=== PATIENT | female | born 1945 | race Caucasian/White ===

== ENCOUNTER 2016-09-05 17:51 | Inpatient (IN) | payer OTHER, MEDICARE ==
[~2016-09-05] VITALS: Ht 165.1 cm; Wt 74.8 kg
[~2016-09-05 17:51] MED LIST: CIPRO 500MG (E500 MG PO; IBU-6600 MG PO; LEVOTHROID0.125 MG PO; MOTRIN 400MG (400 MG PO
[2016-09-05 20:38] LABS: ABSOLUTE BASOPHIL COUNT 0 /CUMM (0.0-0.2); ABSOLUTE EOSINOPHIL COUNT 0.3 /CUMM (0.0-0.7); ABSOLUTE GRANULOCYTE CT 6.3 /CUMM (1.4-6.5); ABSOLUTE LYMPH COUNT 0.4 /CUMM (1.2-3.4); ABSOLUTE MONOCYTE COUNT 0.5 /CUMM (0.10-0.60); BASOPHIL % 0.2 % (0.0-2.0); EOSINOPHIL % 3.7 % (0-5); GRANULOCYTE % 84.7 % (42.2-75.2); HEMATOCRIT 45.3 % (37-47); MEAN CORPUSCULAR HGB 27.4 PG (27.0-31.0); MEAN CORPUSCULAR HGB CONC 32.8 G/DL (33.0-37.0); MEAN CORPUSCULAR VOLUME 83.3 FL (81.0-99.0); MEAN PLATELET VOLUME 9.2 FL (7.4-10.4); PLATELET COUNT 337 /CUMM (130-400); RBC DISTRIBUTION WIDTH 13.6 % (11.5-14.5); RED BLOOD CELL CT 5.44 /CUMM (4.20-5.40); WHITE BLOOD CELL COUNT 7.4 /CUMM (4.8-10.8)
--- NOTE | 2016-09-05 20:47 | ED INFLUENZA/URI COMPLAINT ---
History of Present Illness General Chief Complaint: General Adult Stated Complaint: MY LUNGS HAVE FLUID Source: patient, family, old records Exam Limitations: no limitations Vital Signs & Intake/Output Vital Signs & Intake/Output Vital Signs Date Time Temp Pulse Resp B/P Pulse O2 O2 Flow FiO2 Ox Delivery Rate 09/05 2122 95 09/05 1828 98.3 81 20 134/84 98 Room Air Allergies Coded Allergies: codeine (Intermediate, NAUSEA 07/13/16) meperidine (From DEMEROL) (Intermediate, NAUSEA 07/13/16) Reconcile Medications Levothyroxine Sodium (Synthroid) 125 MCG TABLET 1 TAB PO DAILY THYROID ( Reported) Triage Note: PT TO TRIAGE WITH C/O SOB, DRY COUGH, AND FEELING LIKE HER AIRWAYS IRRITATED. PT HAD A COLONOSCOPY DONE 2 WEEKS AGO AND WAS INTUBATED FOR PROCEDURE. PT HAS SYMPTOMS SINCE. PT DENIES ANY PAIN. VSS. Triage Nurses Notes Reviewed? yes Onset: Gradual Duration: week(s): (2), constant, getting worse Timing: recent history Severity: moderate Severity Numbers: 7 Prior Episodes/Possible Cause: no prior episodes No Modifying Factors: none Associated Symptoms: cough, fever/chills, muscle aches, wheezing HPI: This is a 71-year-old female with history of exercise-induced asthma hypothyroid diverticulitis presents emergency room for evaluation complaining of progressively worsening nonoperative cough shortness of breath for the past 2 weeks getting worse. Patient states that she had a colonoscopy performed on August 19 and when she was coming out of the anesthesia the patient states that she vomited multiple times. She states she had a CAT scan performed 1 week ago that showed findings suggestive of multifocal pneumonia and was started on Augmentin. She states she just finished the prescription however states her symptoms have been getting worse. She reports a positive chills today no fever no nausea no vomiting since no chest pain. It swelling chest pain dizziness lightheadedness. No diarrhea. No recent sick contacts she does not smoke (LIZETTE PALACIOS,ANTONIO) Past History Travel History Traveled to [place] past 21 day No Medical History Any Pertinent Medical History? 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 No (ANTONIO [employer]) Review of Systems Review of Systems Constitutional: Reports: see HPI. All Other Systems: Reviewed and Negative Comments Review of systems: See HPI, All other systems negative. Constitutional, chills no fever, no malaise HEENT: no sore throat no congestion, Cardiovascular: No chest pain , no palpitation , no orthopnea no ankle swelling Skin,no rashes, no change in skin Respiratory: dyspnea cough no sputum no hemoptysis GI: No nausea no vomiting, no diarrhea, : No dysuria Muscle skeletal: No joint pain,, no back pain, no neck pain, Neurologic: No numbness no headache Psych: No stress Heme/endocrine: No bruising no bleeding Immunology: No lymphadenopathy (ANTONIO [employer]) Physical Exam Physical Exam General Appearance: well developed/nourished, alert, awake Ears, Nose, Throat: normal ENT inspection Comments: Well-developed well-nourished person in no acute distress HEENT: Normal EENT exam; PERRL, EOMI, HEAD is atraumatic. moist mucous membranes. Neck: Supple, no lymphadenopathy, normal range of motion Back: Nontender, no CVA tenderness. Full range of motion Cardiovascular: Regular rate and rhythms no murmurs rubs Respiratory: Chest nontender.There were no bony deformities, no asymmetry. No respiratory distress. Patient speaking in full complete sentences. Breath sounds clear to auscultation bilaterally: NO W/R/R Abdomen: Soft, nontender nondistended, no appreciable organomegaly. Normal bowel sounds. No rebound/guarding, Extremity: No edema, full range of motion of extremities, Neuro: Alert oriented x3, motor sensory normal, There were no obvious focal neurologic abnormalities. Skin: No appreciable rash on exposed skin, skin is warm and dry. Psych: Mood and affect is normal, memory and judgment is normal. Core Measures Severe Sepsis Present: No Septic Shock Present: No (ANTONIO [employer]EL) Progress Differential Diagnosis: influenza, otitis, pneumonia, pharyngitis, sinusitis, bronchitis, chf Plan of Care: Orders Procedure Date/time Status Regular Diet 09/06 B Active LACTIC ACID 09/053 Active EKG 09/05 2155 Active Patient Data 09/05 2144 Active OXYGEN SETUP (GEN) 09/05 2106 Active Saline Lock 09/05 2106 Active Admit to inpatient 09/05 2106 Active Vital Signs 09/05 2106 Active Activity/Ambulation 09/05 2106 Active Code Status 09/05 2106 Active BLOOD CULTURE 09/05 2052 Active LACTIC ACID 09/05 2052 Active TROPONIN LEVEL 09/05 1934 Complete COMPREHENSIVE METABOLIC PANEL 09/05 1934 Complete CBC WITHOUT DIFFERENTIAL 09/05 1934 Complete B-TYPE NATRIURETIC PEP (BNP) 09/05 1934 Complete Laboratory Tests 09/05/162154: Lactic Acid Pending 09/05/162028: Anion Gap 12, Estimated GFR > 60, BUN/Creatinine Ratio 11.4, Glucose 98, Calcium 9.7, Total Bilirubin 0.9, AST 20, ALT 32, Alkaline Phosphatase 78, Troponin I < 0.01, Jpi-O-Xjklynqttyl Pept 107, Total Protein 7.4, Albumin 4.5, Globulin 2.9, Albumin/Globulin Ratio 1.6, CBC w Diff NO MAN DIFF REQ, RBC 5.44 H, MCV 83.3, MCH 27.4, RDW 13.6, MPV 9.2, Gran % 84.7 H, Lymphocytes % 4.9 L, Monocytes % 6.5, Eosinophils % 3.7, Basophils % 0.2, Absolute Granulocytes 6.3, Absolute Lymphocytes 0.4 L, Absolute Monocytes 0.5, Absolute Eosinophils 0.3, Absolute Basophils 0, PUBS MCHC 32.8 L Microbiology 09/05 2154 BLOOD: Blood Culture - RECD 09/05 2129 BLOOD: Blood Culture - RECD Labs ordered chest x-ray ordered, old records incluing pts previous ct reviewed IMPRESSION: 1. Multifocal patchy parenchymal opacities are seen throughout the left lung as described above. Findings are suspicious for a diffuse pneumonia, perhaps related to an atypical organism. Close clinical correlation is requested. Other differential possibilities could include diffuse pneumonitis related to aspiration, given the patient's hiatal hernia. Follow-up CT scan in 3 months post treatment is recommended to document complete resolution of findings. 2. 0.6 cm nonspecific solid noncalcified nodule in the right middle lobe. This can be reassessed at the time of the above suggested follow-up CT scan. 3. Moderate-sized hiatal hernia. 09/05/2016 9:17:21 PM patient was seen by me immediately being brought back to the room, I discussed with her at length all of her lab results and x-ray findings given she has failed outpatient therapy I believe premature discharge would BE medically harmful case was discussed with Dr. osman who agrees with plan unasyn 1.[address] nava , will admit, duoneb ordered, solumedrol 125mg iv ordered (ANTONIO [employer]) Diagnostic Imaging: Viewed by Me: Radiology Read. Discussed w/RAD: Radiology Read. Radiology Impression: PATIENT: WILDER OTT PRESENT AGE: 71 PATIENT ACCOUNT NO: [id number] : 47 LOCATION: [facility] ORDERING PHYSICIAN: LENKA OSMAN MD SERVICE DATE: 09/05/16 EXAM TYPE: RAD - XRY-CHEST XRAY, PA AND LATERAL EXAMINATION: XR CHEST CLINICAL INFORMATION: Shortness of breath, cough. COMPARISON: CT from 08/27/2016. Radiograph 2016. TECHNIQUE: 2 views of the chest were obtained. FINDINGS: The lungs are well expanded. There is patchy airspace opacity throughout the left lung. This is similar to the prior CT and increased from the prior radiograph. No pleural effusion or pneumothorax. The cardiomediastinal silhouette is within normal limits. Mild degenerative changes of the spine. IMPRESSION: Patchy airspace opacity throughout the left lung, similar to the prior CT most suspicious for multifocal pneumonia. DICTATED BY: BEV DEWEY MD DATE/TIME DICTATED:2047 PLASTIC TILE SETTER:SUZIE DATE/TIME TRANSCRIBED:09/05/162047 CONFIDENTIAL, DO NOT COPY WITHOUT APPROPRIATE AUTHORIZATION. <Electronically signed in Other Vendor System> SIGNED BY: BEV DEWEY MD 09/05/162051 Initial ED EKG: normal intervals, normal p-waves, normal QRS complex, normal sinus rhythm (80) Prior EKG: unchanged (06/2016) (ANTONIO [employer]EL) Departure Departure Time of Disposition: 2111 Disposition: STILL A PATIENT Condition: Stable Clinical Impression Primary Impression: Aspiration pneumonia Secondary Impressions: Lung nodule Referrals: OPAL CROWELL DO (PCP/Family) Departure Forms: Customer Survey General Discharge Information Admission Note Spoke With: GLENDA NAVA MD Documentation of Exam: Documentation of any treatments & extenuating circumstances including Concerns Regarding Discharge (functional status, medication knowledge or non-compliance, living conditions, etc.) that warrant an admission rather than observation: [ Trend labs and cultures IV antibiotics patient has failed outpatient by mouth antibiotics, respiratory treatments as needed premature discharge would BE medically harmful (LIZETTE PALACIOS,ANTONIO) PA/ASSISTANT NURSE MANAGER Co-Sign Statement Statement: ED Attending supervision documentation- x I saw and evaluated the patient. I have also reviewed all the pertinent lab results and diagnostic results. I agree with the findings and the plan of care as documented in the PA's/ASSISTANT NURSE MANAGER's documentation. [] I have reviewed the ED Record and agree with the PA's/ASSISTANT NURSE MANAGER's documentation. [] Additions or exceptions (if any) to the PAs/ASSISTANT NURSE MANAGER's note and plan are summarized below: [] (JACQUI PICKARD,LENKA)
--- NOTE | 2016-09-05 20:52 | RADIOLOGY REPORT ---
EXAMINATION: XR CHEST CLINICAL INFORMATION: Shortness of breath, cough. COMPARISON: CT from 08/27/2016. Radiograph 08/21/2016. TECHNIQUE: 2 views of the chest were obtained. FINDINGS: The lungs are well expanded. There is patchy airspace opacity throughout the left lung. This is similar to the prior CT and increased from the prior radiograph. No pleural effusion or pneumothorax. The cardiomediastinal silhouette is within normal limits. Mild degenerative changes of the spine. IMPRESSION: Patchy airspace opacity throughout the left lung, similar to the prior CT most suspicious for multifocal pneumonia.
[2016-09-05] MEDS ORDERED: SYNTHROID125 MCG PO (21:24)
--- NOTE | 2016-09-05 22:20 | History & Physical ---
CY PICKARD,[facility] 09/05/16 2219: General Information and HPI MD Statement: I have seen and personally examined WILDER OTT and documented this H&P. The patient is a 71 year old F who presented with a patient stated chief complaint of [sob and cough]. Source of Information: patient Exam Limitations: no limitations History of Present Illness: This is a 71-year-old lady with a medical history only significant for hypothyroidism that presents to the emergency room this evening with a chief complaint of dyspnea. She states that 2 weeks ago she had a colonoscopy and during the procedure started to vomit and had to be intubated. She went home the same day and subsequently developed fevers and dry cough, her PCP sent her for chest x-ray which was negative but her symptoms persisted and she eventually got a CAT scan which showed multifocal opacities throughout the left lung and there is a high suspicion aspiration pneumonia. Her PCP placed on a seven-day course of Augmentin which she just finished yesterday evening. Patient states that when she started taking the antibiotic she felt good for a couple of days but over the course of last 2-3 days she has been having dry cough, tactile fevers, chills and orthopnea. Her recommended that she come to the ER and get evaluated. At present she denies any chest pain, nausea, vomiting, diarrhea, fevers or chills, states that her shortness of breath has gotten better since she received nebulizer treatment in the emergency room. Her chest x-ray today that show patchy airspace opacity throughout the left lung likely 2/ 2 multifocal pneumonia. 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 Home Who Do You Live With? spouse Primary Language: Zimbabwean Smoking Status: Never Smoked ETOH Use: denies use Illicit Drug Use: denies illicit drug use Functional Ability ADLs Independent: dressing, eating, toileting, bathing. IADLs Independent: shopping, housework, finances, food prep, telephone, transportation , medication admin. Review of Systems Review of Systems Constitutional: Reports: see HPI. Exam & Diagnostic Data Last 24 Hrs of Vital Signs/I&O Vital Signs Date Time Temp Pulse Resp B/P Pulse O2 O2 Flow FiO2 Ox Delivery Rate 09/05 2212 99.3 78 24 151/74 96 Room Air 09/05 212 95 09/05 1828 98.3 81 20 134/84 98 Room Air Physical Exam General Appearance Alert, Oriented X3, Cooperative, No Acute Distress Skin No Rashes, No Breakdown HEENT Atraumatic, PERRLA, EOMI Cardiovascular Regular Rate, Normal S1, Normal S2, 1/6 ENID RUSB Lungs NORMAL AIR ENTRY BILATERALLY, RONCHII AND WHEEZING OVER MID AND LOWER LUNGS B/L Abdomen Normal Bowel Sounds, Soft, No Tenderness Neurological Normal Speech, Strength at 5/5 X4 Ext, Normal Tone, Sensation Intact, Cranial Nerves 3-12 NL Diagnostic Data EKG Results Rate 78, CA 158, QRS 104, QTc 388 Sinus rhythm, LVH CXR Results IMPRESSION: Patchy airspace opacity throughout the left lung, similar to the prior CT most suspicious for multifocal pneumonia. Assessment/Plan Assessment: Assessment- 1. Aspiration PNA 2. Reactive airways 2/2 aspiration PNA 3. Hypothyroidism 4. Pulmonary nodules as evidenced by CAT scan Plan- GEN med admit Blood culture and sputum culture Started on Unasyn 3 g every 6 TRC evaluation, pulmonary toilet, maintain oxygen saturation greater than 95%, supplement as needed Continue home dose of Synthroid IN Solumedrol 40 q12 Consider Pulmonary consult in the morning Regular diet Pain pathway DVT prophylaxis with subcutaneous heparin Full code As Ranked By This Provider Problem List: 1. Aspiration pneumonia 2. Hypothyroid Core Measures/Miscellaneous Acute Coronary Syndrome ACS Diagnosis: No Cerebrovascular Accident CVA/TIA Diagnosis: No Congestive Heart Failure CHF Diagnosis: No Venous Thromboembolism VTE Risk Factors: Age > 40 VTE Prophylaxis Ordered Inpt: Mechanical (ALPS/TEDS) No Mech VTE prophylaxis d/t: No contraindications No VTE Pharm Prophylaxis d/t: No contraindications VTE Diagnosis: No VTE Type: NONE VTE Confirmed by (Test): NONE Severe Sepsis Severe Sepsis Present: No Septic Shock Septic Shock Present: No Miscellaneous Documentation Attending Case Discussed With: GLENDA NAVA MD Primary Care Physician: OPAL CROWELL DO Patient sees these Specialists NONE Level of Patient Care: General Medicine Resident Review Statement Resident Statement: examined this patient, discussed with fashion styling intern KRISTIN NAVA MD 09/06/16 0018: Attending MD Review Statement Attending Statement Attending MD Statement: examined this patient, discuss w/resident/PA/CARPENTER HELPER [employer], agreed w/resident/PA/CARPENTER HELPER [employer] Attending Assessment/Plan: 71 yo F with h/o hypothyroidism, exercise-induced asthma, recurrent episodes of diverticulitis (Jul and Jun 2016) that was treated conservatively after which she recently underwent colonoscopy by Dr. Buckner on 08/19/2016. This revealed sigmoid diverticulosis with fixed angulation likely related to recurrent diverticulitis. During the procedure, she vomited and had to be intubated. Post discharge, she experienced sore throat, fever and cough. CT chest (08/27/16) showed diffuse pneumonia, lung nodule and moderate sized hiatal hernia, so she was treated with Augmentin for aspiration pneumonia by her PCP for 7 days. She felt better for 3-4 days, but her symptoms returned with cough, chills and exertional dyspnea. Vitals stable except sats are in low 90's on RA. Chest b/l scattered rhonchi and wheezing. Labs unremarkable. CXR: patchy airspace opacity left lung, multifocal pneumonia. EKG: SR, nonspecific T wave changes. 1. Multifocal aspiration vs. Atypical pneumonia, in the setting of recent aspiration and moderate sized hiatal hernia, failed outpatient therapy. This has likely precipitated her asthma exacerbation. GM admit, TRC nebs, aspiration precautions, sputum culture, IV Unasyn and IV steroids. Pulm consult in AM. Consider repeat CT chest if symptoms do not get better. DVT ppx Lovenox. Full code.
[2016-09-06 01:43] VITALS: BP 140/70
--- NOTE | 2016-09-06 05:26 | Admission Certification ---
Admission Certification Certification Statement - As attending physician, I certify that at the time of - admission, based on clinical presentation, severity of - symptoms, need for further diagnostic testing and - therapeutic interventions, and risk of adverse outcomes - without in-hospital treatment, in my clinical assessment, - this patient requires an acute hospital stay for a minimum - of two nights or longer. I have also considered psychsocial - factors such as support system, advanced age, financial - issues, cognitive issues, and failed out-patient treatments, - past re-admission history, safety of patient, and lack of - compliance as applicable. Specific rationale supporting this admission is: Aspiration vs. atypical pneumonia, failed outpatient therapy, associated with asthma exacerbation.
[2016-09-06 06:49] VITALS: BP 134/74
--- NOTE | 2016-09-06 07:46 | PN- Housestaff ---
ALETHA PICKARD,ANTHONY 09/06/16 0738: Subjective Follow-up For: Aspiration pneumonia Subjective: She c/o cough but denies any sputum production, fever/chills, n/v/abdominal pain. She has chest tightness. Review of Systems Constitutional: Denies: chills, fever, weakness. EENTM: Reports: no symptoms. Cardiovascular: Denies: chest pain, orthopena, palpitations, peripheral edema. Respiratory: Reports: cough, short of breath. Denies: hemoptysis, orthopnea, sputum production, wheezing. Gastrointestinal: Denies: abdominal pain, constipation, diarrhea, nausea, vomiting. Genitourinary: Reports: no symptoms. Musculoskeletal: Reports: no symptoms. Skin: Reports: no symptoms. Neurological/Psychological: Reports: no symptoms. Hematologic/Endocrine: Reports: no symptoms. Immunologic/Allergic: Reports: no symptoms. Objective Last 24 Hrs of Vital Signs/I&O Vital Signs Date Time Temp Pulse Resp B/P Pulse O2 O2 Flow FiO2 Ox Delivery Rate 09/06 0649 98.8 86 20 134/74 93 Room Air 09/06 0400 91 Room Air 09/06 0143 99.0 84 20 140/70 91 Room Air 09/05 2347 98.9 75 18 148/69 96 09/05 2213 99.3 78 24 151/74 96 Room Air 09/05 2122 95 09/05 1828 98.3 81 20 134/84 98 Room Air Intake & Output 09/06 0800 09/06 0000 09/05 1600 Intake Total 230 100 Output Total Balance 230 100 Intake, IV 130 100 Intake, Oral 100 Number 0 Bowel Movements Patient 165 lb 165 lb Weight Physical Exam General Appearance: Alert, Oriented X3, Cooperative, No Acute Distress Skin: No Rashes, No Breakdown, No Significant Lesion HEENT: Atraumatic, PERRLA, EOMI, Mucous Membr. moist/pink Neck: Supple, No JVD, No LAD Lymphatic: Cervical nl Cardiovascular: Regular Rate, Normal S1, Normal S2 Lungs: Normal Air Movement, decreased breathing sound Abdomen: Normal Bowel Sounds, Soft, No Tenderness Neurological: Normal Speech, Strength at 5/5 X4 Ext, Normal Tone, Sensation Intact, Cranial Nerves 3-12 NL Extremities: No Edema, Normal Pulses, No Tenderness/Swelling Vascular: Normal Pulses, Pulses Symmetrical Current Medications: Current Medications Sig/Anushka Start time Last Medication Dose Route Stop Time Status Admin Acetaminophen 650 MG Q6 09/05 2359 AC PO Albuterol Sulfate 3 ML ONCE ONE 09/05 2114 DC 09/05 INH 09/05 Ampicillin Sodium/ 3,000 MG Q6H 09/06 0400 AC 09/06 Sulbactam Sodium IV 0349 Sodium Chloride 100 ML Ampicillin Sodium/ 0 .STK-MED ONE 09/05 2158 DC Sulbactam Sodium .ROUTE Ampicillin Sodium/ 1,500 MG ONCE ONE 09/05 2114 DC 09/05 Sulbactam Sodium IV 09/05 Sodium Chloride 100 ML Ibuprofen 600 MG Q6P PRN 09/05 2300 AC PO Ipratropium Lasara 2.5 ML ONCE ONE 09/05 2114 DC 09/05 INH 09/05 Levothyroxine Sodium 0.125 MG DAILY AC 09/06 0700 AC 09/06 PO 0623 Methylprednisolone 40 MG Q12 09/06 1000 AC IV Methylprednisolone 0 .STK-MED ONE 09/05 2157 DC .ROUTE Methylprednisolone 125 MG ONCE ONE 09/05 2114 DC 09/05 IV 09/05 Last 24 Hrs of Lab/Mian Results Last 24 Hrs of Labs/Mics: Laboratory Tests 09/05/162154: Lactic Acid 1.4 09/05/162028: Anion Gap 12, Estimated GFR > 60, BUN/Creatinine Ratio 11.4, Glucose 98, Calcium 9.7, Total Bilirubin 0.9, AST 20, ALT 32, Alkaline Phosphatase 78, Troponin I < 0.01, Nmi-R-Wypwqytfywv Pept 107, Total Protein 7.4, Albumin 4.5, Globulin 2.9, Albumin/Globulin Ratio 1.6, CBC w Diff NO MAN DIFF REQ, RBC 5.44 H, MCV 83.3, MCH 27.4, RDW 13.6, MPV 9.2, Gran % 84.7 H, Lymphocytes % 4.9 L, Monocytes % 6.5, Eosinophils % 3.7, Basophils % 0.2, Absolute Granulocytes 6.3, Absolute Lymphocytes 0.4 L, Absolute Monocytes 0.5, Absolute Eosinophils 0.3, Absolute Basophils 0, PUBS MCHC 32.8 L Microbiology 09/05 2252 LOWER RESP: Respiratory Culture - COLB 09/05 2252 LOWER RESP: Gram Stain - COLB 09/05 2154 BLOOD: Blood Culture - RECD 09/05 2129 BLOOD: Blood Culture - RECD Lines/Diet/Fluids Lines: peripheral lines Assessment/Plan Assessment: 71 yo female with pmh of hypothyroidism, exercise-induced asthma, recurrent episodes of diverticulitis (Jul and Jun 2016) that was treated conservatively after which she recently underwent colonoscopy by Dr. Buckner on 08/19/2016. This revealed sigmoid diverticulosis with fixed angulation likely related to recurrent diverticulitis. During the procedure, she vomited and had to be intubated. Post discharge, she experienced sore throat, fever and cough. CT chest (08/27/16) showed diffuse pneumonia, lung nodule and moderate sized hiatal hernia, so she was treated with Augmentin for aspiration pneumonia by her PCP ( Dr. Vega) for 7 days. She felt better for 3-4 days, but her symptoms returned with cough, chills and exertional dyspnea. CXR: patchy airspace opacity left lung, multifocal pneumonia. EKG: SR, nonspecific T wave changes. 1. Multifocal aspiration pneumonia: recent aspiration with moderate sized hiatal hernia, failed outpatient augmentin therapy. continue TRC nebs, aspiration precautions, sputum culture, IV Unasyn and IV steroids. Will get Pulm consult. 2. Rt. middle low 0.6cm solid noduel: follow up Pulmonary as outpatient. 3. Hypothyrodism: c/w home 0.125 mg daily. DVT ppx Lovenox. Full code. Problem List: 1. Aspiration pneumonia 2. Lung nodule Pain Ratin Pain Location: NA Pain Goal: Pain 4 or less Pain Plan: tyrenol Tomorrow's Labs & Rationales: CBC - acute infection DVT/Prophylaxis: pharmacological Consulting Request: Consulting Specialty: Pulmonary Disease Consulting Physician: Dr. Terry Reason for Consult: Aspiration pneumonia, lung nodule Discharge Plan Stable for Discharge? No JALEESA ALMARAZ MD 09/06/16 1439: Attending MD Review Statement Attending Statement Attending MD Statement: examined this patient, discuss w/resident/PA/RN PERINATAL, agreed w/resident/PA/RN PERINATAL, reviewed EMR data (avail), discussed with nursing, amended to note Attending Assessment/Plan: The patient was seen and discussed with house staff. Agree with plan of care as outlined.
--- NOTE | 2016-09-06 12:54 | Cons- Pulmonary ---
General Information and HPI Consulting Request Date of Consult: 09/06/16 Requested By: sarwat Reason for Consult: Abnormal chest x-ray History of Present Illness: 71-year-old with mild exercise-induced asthma on active underwent colonoscopy approximately 2 weeks ago. He was in the left lateral decubitus position. Her procedure was complicated by emesis during the procedure and subsequently in the recovery room. Chest x-ray showed left-sided infiltrate for which she was started on antibiotics. He transiently improved but had recurrence of dry cough and shortness of breath and was seen in the emergency room yesterday. CT scan was done which showed patchy left lung infiltrates. She's been started on steroids and Unasyn. She reports feeling better but continues to have a dry cough without sputum she's had no hemoptysis she remains on room air. Allergies/Medications Allergies: Coded Allergies: codeine (Intermediate, NAUSEA 07/13/16) meperidine (From DEMEROL) (Intermediate, NAUSEA 07/13/16) Home Med List: Levothyroxine Sodium (Synthroid) 125 MCG TABLET 1 TAB PO DAILY THYROID ( Reported) Review of Systems Review of Systems Constitutional: Denies: chills, fever. Cardiovascular: Denies: chest pain, peripheral edema. Respiratory: Reports: cough, short of breath. Denies: hemoptysis, sputum production, wheezing. GI: Denies: abdominal pain, bloating, diarrhea, vomiting. 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 Home Who Do You Live With? spouse Services at Home: None Primary Language: Czech Smoking Status: Never Smoked ETOH Use: denies use Illicit Drug Use: denies illicit drug use Functional Ability ADLs Independent: dressing, eating, toileting, bathing. IADLs Independent: shopping, housework, finances, food prep, telephone, transportation , medication admin. ECHO Results (as available) Date of last Echo 05/25/13 EF% 65 Exam & Diagnostic Data Last 24 Hrs of Vital Signs/I&O Vital Signs Date Time Temp Pulse Resp B/P Pulse O2 O2 Flow FiO2 Ox Delivery Rate 09/06 0841 Room Air Room Air 09/06 0800 Room Air 09/06 0649 98.8 86 20 134/74 93 Room Air 09/06 0400 91 Room Air 09/06 0143 99.0 84 20 140/70 91 Room Air 09/05 2347 98.9 75 18 148/69 96 09/05 2213 99.3 78 24 151/74 96 Room Air 09/05 2122 95 09/05 1828 98.3 81 20 134/84 98 Room Air Intake & Output 09/06 1600 09/06 0800 09/06 0000 Intake Total 230 100 Output Total Balance 230 100 Intake, IV 130 100 Intake, Oral 100 Number 0 Bowel Movements Patient 165 lb 165 lb Weight Patient is afebrile room oximetry is 93% HNT exam shows no adenopathy or stridor exam for chest shows left crackles there are no wheezes cardiac exam shows regular S1 and S2 without murmurs abdominal exam is soft nontender extremities without edema Last 48 Hrs of Labs/Mian: Laboratory Tests 09/05/162154: Lactic Acid 1.4 09/05/162028: Anion Gap 12, Estimated GFR > 60, BUN/Creatinine Ratio 11.4, Glucose 98, Calcium 9.7, Total Bilirubin 0.9, AST 20, ALT 32, Alkaline Phosphatase 78, Troponin I < 0.01, Azj-[id number]-[id number] Pept 107, Total Protein 7.4, Albumin 4.5, Globulin 2.9, Albumin/Globulin Ratio 1.6, CBC w Diff NO MAN DIFF REQ, RBC 5.44 H, MCV 83.3, MCH 27.4, RDW 13.6, MPV 9.2, Gran % 84.7 H, Lymphocytes % 4.9 L, Monocytes % 6.5, Eosinophils % 3.7, Basophils % 0.2, Absolute Granulocytes 6.3, Absolute Lymphocytes 0.4 L, Absolute Monocytes 0.5, Absolute Eosinophils 0.3, Absolute Basophils 0, PUBS MCHC 32.8 L Assessment/Plan Impression/Plan: 71-year-old previously healthy had emesis while undergoing colonoscopy with moderate sedation in the left lateral decubitus position. She has evidence of changes secondary to aspiration. Whether these are due to partially treated infection or inflammatory changes such as organizing pneumonia are unclear. Recommendations: With no evidence of bronchospasm would rapidly taper steroids. Attempt to induce sputum. Continue antibiotics. Obtain sedimentation rate. Dr. Andrews will be covering for the weekend. She will need outpatient CT follow-up for infiltrates and nodules Consult Acknowledgment - Thank you for your consult request.
[2016-09-06 14:18] VITALS: BP 150/80
[2016-09-06 22:38] VITALS: BP 132/70
[2016-09-07 06:30] VITALS: BP 126/70
[2016-09-07 08:43] LABS: ABSOLUTE BASOPHIL COUNT 0 /CUMM (0.0-0.2); ABSOLUTE EOSINOPHIL COUNT 0 /CUMM (0.0-0.7); ABSOLUTE LYMPH COUNT 0.5 /CUMM (1.2-3.4); ABSOLUTE MONOCYTE COUNT 0.7 /CUMM (0.10-0.60); BASOPHIL % 0 % (0.0-2.0); EOSINOPHIL % 0 % (0-5); GRANULOCYTE % 87.1 % (42.2-75.2); MEAN CORPUSCULAR HGB CONC 33.5 G/DL (33.0-37.0); MEAN CORPUSCULAR VOLUME 83.5 FL (81.0-99.0); PLATELET COUNT 330 /CUMM (130-400); RED BLOOD CELL CT 4.64 /CUMM (4.20-5.40)
[2016-09-07 09:10] LABS: HEMATOCRIT 38.8 % (37-47)
--- NOTE | 2016-09-07 09:15 | PN- Housestaff ---
Subjective Follow-up For: Aspiration pneumonia Complaints: Mild productive cough Subjective: Interval history: This morning Mrs Costello mentions that she was able to sleep most of the night. She does report slightly productive cough with light yellow sputum. She denies any fevers, chills, body aches, chest pain, worsening shortness of breath, blood in the sputum, diarrhea or urinary symptoms. Review of Systems Constitutional: Reports: see HPI. EENTM: Reports: no symptoms. Cardiovascular: Reports: no symptoms. Respiratory: Reports: see HPI. Gastrointestinal: Reports: no symptoms. Genitourinary: Reports: no symptoms. Musculoskeletal: Reports: no symptoms. Objective Last 24 Hrs of Vital Signs/I&O Vital Signs Date Time Temp Pulse Resp B/P Pulse O2 O2 Flow FiO2 Ox Delivery Rate 09/07 0630 98.9 63 18 126/70 96 Room Air 09/06 2238 98.0 72 20 132/70 97 09/06 2034 96 Room Air 09/06 1600 Room Air 09/06 1418 99.1 106 20 150/80 95 Room Air Intake & Output 09/07 1600 09/07 0800 09/07 0000 Intake Total 300 860 Output Total Balance 300 860 Intake, IV 200 260 Intake, Oral 100 600 Physical Exam General Appearance: Alert, Cooperative, No Acute Distress Skin: No Breakdown HEENT: EOMI, Mucous Membr. moist/pink, Mois[place] mucous membranes Cardiovascular: Regular Rate, Normal S1, Normal S2 Lungs: Normal Air Movement, Slight dullness to percussion of the left lung field Abdomen: Normal Bowel Sounds, Soft, No Tenderness Extremities: No Edema, Normal Pulses Vascular: Pulses Symmetrical Current Medications: Current Medications Sig/Anushka Start time Last Medication Dose Route Stop Time Status Admin Acetaminophen 650 MG Q6 PRN 09/06 0915 AC PO Acetaminophen 650 MG Q6 09/05 2359 DC PO Albuterol Sulfate 3 ML BID 09/06 1000 AC 09/06 INH 1904 Ampicillin Sodium/ 3,000 MG Q6H 09/06 0400 AC 09/07 Sulbactam Sodium IV 0344 Sodium Chloride 100 ML Enoxaparin Sodium 40 MG DAILY 09/06 1000 AC 09/06 SC 1019 Ibuprofen 600 MG Q6P PRN 09/05 2300 AC PO Levothyroxine Sodium 0.125 MG DAILY AC 09/06 0700 AC 09/07 PO 0610 Methylprednisolone 40 MG DAILY 09/07 1000 AC IV Methylprednisolone 40 MG Q12 09/06 1000 DC 09/06 IV 09/06 2200 2122 Patient Medication 1 ED .STK-MED ONE 09/06 1354 DC Teaching ED 09/06 1355 Last 24 Hrs of Lab/Mian Results Last 24 Hrs of Labs/Mics: Laboratory Tests 09/07/16 0615: CBC w Diff Pending, WBC Pending, RBC Pending, Hgb Pending, Hct Pending, MCV Pending, MCH Pending, RDW Pending, Plt Count Pending, MPV Pending, Gran % Pending, Lymphocytes % Pending, Monocytes % Pending, Eosinophils % Pending, Basophils % Pending, Absolute Granulocytes Pending, Absolute Lymphocytes Pending , Absolute Monocytes Pending, Absolute Eosinophils Pending, Absolute Basophils Pending, PUBS MCHC Pending, ESR W[place]gren Pending 09/06/165: Urine Color YEL, Urine Clarity CLEAR, Urine pH 6.0, Ur Specific [place] 1.010, Urine Protein NEG, Urine Ketones NEG, Urine Nitrite NEG, Urine Bilirubin NEG, Urine Urobilinogen 0.2, Ur Leukocyte Esterase TRACE H, Ur Microscopic SEDIMENT EXAMINED, Urine RBC RARE, Urine WBC 1-3 H, Ur Epithelial Cells RARE, Urine Hemoglobin TRACE-INTACT, Urine Glucose NEG Microbiology 09/06 1602 LOWER RESP: Respiratory Culture - COLB 09/06 1602 LOWER RESP: Gram Stain - COLB Assessment/Plan Assessment: 71 yo female with pmh of hypothyroidism, exercise-induced asthma, recurrent episodes of diverticulitis (Jul and Jun 2016) that was treated conservatively after which she recently underwent colonoscopy by Dr. Buckner on 08/19/2016. This revealed sigmoid diverticulosis with fixed angulation likely related to recurrent diverticulitis. During the procedure, she vomited and had to be intubated. Post discharge, she experienced sore throat, fever and cough. CT chest (08/27/16) showed diffuse pneumonia, lung nodule and moderate sized hiatal hernia, so she was treated with Augmentin for aspiration pneumonia by her PCP ( Dr. Vega) for 7 days. She felt better for 3-4 days, but her symptoms returned with cough, chills and exertional dyspnea. CXR: patchy airspace opacity left lung, multifocal pneumonia. EKG: SR, nonspecific T wave changes. 1. Multifocal aspiration pneumonia w/ failed outpatient augmentin therapy: * recent aspiration with moderate sized hiatal hernia * Hospital day 2 Unasyn IV * We'll continue Solu-Medrol IV 40 mg daily today transition her to oral tomorrow with with clinical improvement * Sputum cultures to be obtained * Continue with nebulizer treatments and TRCs 2. Rt. middle low 0.6cm solid nodule: follow up Pulmonary as outpatient. * At this time no evidence of post obstructive pneumonia on that side on current chest x-ray * Outpatient follow-up 3. Hypothyroidism: * c/w home 0.125 mg daily. DVT ppx Lovenox. Full code. Problem List: 1. Aspiration pneumonia 2. Lung nodule 3. Hypothyroid Pain Ratin Pain Location: NA Pain Goal: Pain 4 or less Pain Plan: NA Tomorrow's Labs & Rationales: NA DVT/Prophylaxis: pharmacological Consulting Request: Consulting Specialty: Pulmonary Disease Consulting Physician: Dr. Terry Reason for Consult: Aspiration pneumonia, lung nodule
[2016-09-07 10:19] LABS: WHITE BLOOD CELL COUNT 9.2 /CUMM (4.8-10.8)
--- NOTE | 2016-09-07 13:39 | PN- Pulmonary ---
Subjective HPI/Critical Care Issues: pt seen and examined afebrile hemodynamically stable 97% on RA no leukocytosis doing and feeling better feels that phlegm is "breaking up" no n/v/d/c Objective Current Medications: Current Medications Sig/Anushka Start time Last Medication Dose Route Stop Time Status Admin Acetaminophen 650 MG Q6 PRN 09/06 0915 AC PO Albuterol Sulfate 3 ML BID 09/06 1000 AC 09/07 INH 1008 Ampicillin Sodium/ 3,000 MG Q6H 09/06 0400 AC 09/07 Sulbactam Sodium IV 0929 Sodium Chloride 100 ML Enoxaparin Sodium 40 MG DAILY 09/06 1000 AC 09/07 SC 0928 Ibuprofen 600 MG Q6P PRN 09/05 2300 AC PO Levothyroxine Sodium 0.125 MG DAILY AC 09/06 0700 AC 09/07 PO 0610 Methylprednisolone 40 MG DAILY 09/07 1000 AC 09/07 IV 0928 Methylprednisolone 40 MG Q12 09/06 1000 DC 09/06 IV 09/06 2200 2122 Patient Medication 1 ED .[facility]-MED ONE 09/06 1354 ID Teaching ED 09/06 1355 Vital Signs & I&O Last 24 Hrs of Vitals and I&O: Vital Signs Date Time Temp Pulse Resp B/P Pulse O2 O2 Flow FiO2 Ox Delivery Rate 09/07 1012 97 Room Air 09/07 0630 98.9 63 18 126/70 96 Room Air 09/06 2238 98.0 72 20 132/70 97 09/06 2034 96 Room Air 09/06 1600 Room Air 09/06 1418 99.1 106 20 150/80 95 Room Air Intake & Output 09/07 1600 09/07 0800 09/07 0000 Intake Total 300 860 Output Total Balance 300 860 Intake, IV 200 260 Intake, Oral 100 600 Patient 165 lb Weight Exam Other Physical Findings: gen awake and alert heent ncat cvs s1, s2 lungs rare rhonchi abd soft bs+ ext without edema Results Last 24 Hrs of Lab Results: Laboratory Tests 09/07/16 0615: CBC w Diff NO MAN DIFF REQ, RBC 4.64, MCV 83.5, MCH 28.0, RDW 13.0, MPV 10.0, Gran % 87.1 H, Lymphocytes % 5.3 L, Monocytes % 7.6, Eosinophils % 0, Basophils % 0 L, Absolute Granulocytes 8.0 H, Absolute Lymphocytes 0.5 L, Absolute Monocytes 0.7 H, Absolute Eosinophils 0, Absolute Basophils 0, PUBS MCHC 33.5, ESR Jacques 15 09/06/16 2225: Urine Color YEL, Urine Clarity CLEAR, Urine pH 6.0, Ur Specific [place] 1.010, Urine Protein NEG, Urine Ketones NEG, Urine Nitrite NEG, Urine Bilirubin NEG, Urine Urobilinogen 0.2, Ur Leukocyte Esterase TRACE H, Ur Microscopic SEDIMENT EXAMINED, Urine RBC RARE, Urine WBC 1-3 H, Ur Epithelial Cells RARE, Urine Hemoglobin TRACE-INTACT, Urine Glucose NEG Impression/Plan Impression/Plan Impression/Plan: Impression 71 year old woman - recent aspiration s/p augmentin, now on unasyn - abnormal CT likely related to aspiration/inflammatory response Plan - trc/nebs - d/c solumedrol - prednisone 30mg x 2 days, 20x2, 10x2, then stop - obtain sputum cx, based on results will tailor abx - if sputum cannot be obtained, based on normal RA o2 sat, lack of leukotysis and if minimal secretions, would recommend to stop abx - CT chest follow up as outpatient to ensure resolution DVT prophylaxis at all times
[2016-09-07 13:54] VITALS: BP 136/78
[2016-09-07 23:43] VITALS: BP 154/70
[2016-09-08 06:35] VITALS: BP 128/76
--- NOTE | 2016-09-08 07:58 | PN- Housestaff ---
See Addendum Subjective Follow-up For: Aspiration pneumonia Complaints: Persistent cough Subjective: She reports persistent cough overnight but unable to bring up any sputum. Denies any sore throat, fevers or chills at this time. Review of Systems Constitutional: Reports: see HPI. EENTM: Reports: see HPI. Cardiovascular: Reports: no symptoms. Respiratory: Reports: see HPI. Gastrointestinal: Reports: no symptoms. Musculoskeletal: Reports: no symptoms. Objective Last 24 Hrs of Vital Signs/I&O Vital Signs Date Time Temp Pulse Resp B/P Pulse O2 O2 Flow FiO2 Ox Delivery Rate 09/08 0949 96 Room Air Room Air 09/08 0635 99.4 87 20 128/76 96 Room Air 09/07 2343 97.0 66 20 154/70 95 Room Air 09/07 2140 95 Room Air 09/07 1600 Room Air 09/07 1354 98.0 92 20 136/78 95 09/07 1012 97 Room Air Intake & Output 09/08 1600 09/08 0800 09/08 0000 Intake Total 270 480 Output Total Balance 270 480 Intake, IV 150 Intake, Oral 120 480 Physical Exam General Appearance: Alert, Cooperative, No Acute Distress Skin: No Breakdown, No Significant Lesion HEENT: EOMI, Mucous Membr. moist/pink Lymphatic: Cervical nl Cardiovascular: Regular Rate, Normal S1, Normal S2 Lungs: Normal Air Movement, Mild inspiratory stridor Abdomen: Normal Bowel Sounds, Soft, No Tenderness Extremities: No Edema, Normal Pulses Vascular: Pulses Symmetrical Last 24 Hrs of Lab/Mian Results Last 24 Hrs of Labs/Mics: Microbiology 09/07 1823 LOWER RESP: Respiratory Culture - COLB 09/07 1823 LOWER RESP: Gram Stain - COLB Assessment/Plan Assessment: 71 yo female with pmh of hypothyroidism, exercise-induced asthma, recurrent episodes of diverticulitis (Jul and Jun 2016) that was treated conservatively after which she recently underwent colonoscopy by Dr. Buckner on 08/19/2016. This revealed sigmoid diverticulosis with fixed angulation likely related to recurrent diverticulitis. During the procedure, she vomited and had to be intubated. Post discharge, she experienced sore throat, fever and cough. CT chest (08/27/16) showed diffuse pneumonia, lung nodule and moderate sized hiatal hernia, so she was treated with Augmentin for aspiration pneumonia by her PCP ( Dr. Gary) for 7 days. She felt better for 3-4 days, but her symptoms returned with cough, chills and exertional dyspnea. CXR: patchy airspace opacity left lung, multifocal pneumonia. EKG: SR, nonspecific T wave changes. 1. Multifocal aspiration pneumonia w/ failed outpatient augmentin therapy: * Has received 2 days of IV Unasyn with no significant change. As remained afebrile and no evidence of leukocytosis thus far. Inclined to discontinue the Unasyn, continue with quick taper prednisone and 3 days of azithromycin PO * Mucinex * Continue with nebulizer treatments and TRCs 2. Rt. middle low 0.6cm solid nodule: follow up Pulmonary as outpatient. * At this time no evidence of post obstructive pneumonia on that side on current chest x-ray * Outpatient follow-up 3. Hypothyroidism: * c/w home 0.125 mg daily. DVT ppx Lovenox. Full code. Problem List: 1. Aspiration pneumonia 2. Hypothyroid Pain Ratin Pain Location: NA Pain Goal: Pain 4 or less Pain Plan: NA Tomorrow's Labs & Rationales: NA Consulting Request: Consulting Specialty: Pulmonary Disease Consulting Physician: Dr. Terry Reason for Consult: Aspiration pneumonia, lung nodule Discharge Plan Discharge Disposition: home Stable for Discharge? Yes Anticipated Discharge (Day): tomorrow
--- NOTE | 2016-09-08 13:38 | PN- Pulmonary ---
Subjective HPI/Critical Care Issues: pt seen and examined feeling better tmax 99.4 96% on RA still with some dyspnea but improving Objective Current Medications: Current Medications Sig/Anushka Start time Last Medication Dose Route Stop Time Status Admin Acetaminophen 650 MG Q6 PRN 09/06 0915 AC PO Albuterol Sulfate 3 ML BID 09/06 1000 AC 09/08 INH 0947 Ampicillin Sodium/ 3,000 MG Q6H 09/06 0400 DC 09/08 Sulbactam Sodium IV 0423 Sodium Chloride 100 ML Enoxaparin Sodium 40 MG DAILY 09/06 1000 AC 09/08 SC 1021 Guaifenesin 600 MG Q12 09/08 1002 AC PO Ibuprofen 600 MG Q6P PRN 09/05 2300 AC PO Levothyroxine Sodium 0.125 MG DAILY AC 09/06 0700 AC 09/08 PO 0528 Methylprednisolone 40 MG DAILY 09/07 1000 DC 09/07 IV 0928 Prednisone 30 MG DAILY 09/08 1000 AC 09/08 PO 09/10 1001 1020 Vital Signs & I&O Last 24 Hrs of Vitals and I&O: Vital Signs Date Time Temp Pulse Resp B/P Pulse O2 O2 Flow FiO2 Ox Delivery Rate 09/08 0949 96 Room Air Room Air 09/08 0635 99.4 87 20 128/76 96 Room Air 09/07 2343 97.0 66 20 154/70 95 Room Air 09/07 2140 95 Room Air 09/07 1600 Room Air 09/07 1354 98.0 92 20 136/78 95 Intake & Output 09/08 1600 09/08 0800 09/08 0000 Intake Total 270 480 Output Total Balance 270 480 Intake, IV 150 Intake, Oral 120 480 Exam Other Physical Findings: gen awake and alert heent ncat cvs s1, s2 lungs rare rhonchi abd soft bs+ ext without edema Impression/Plan Impression/Plan Impression/Plan: Impression 71 year old woman - recent aspiration s/p augmentin, now on unasyn - abnormal CT likely related to aspiration/inflammatory response Plan - trc/nebs - prednisone 30mg x 2 days, 20x2, 10x2, then stop - no signs of active infection, afebrile, no leukocytosis, monitor off antibiotics - CT chest follow up as outpatient to ensure resolution - DC planning within 24 hrs DVT prophylaxis at all times
[2016-09-08 15:17] VITALS: BP 156/74
[2016-09-08 22:14] VITALS: BP 142/60
[2016-09-09 06:21] VITALS: BP 140/66
--- NOTE | 2016-09-09 08:16 | PN- Pulmonary ---
Subjective HPI/Critical Care Issues: Patient feels well without shortness of breath cough is improved she has no sputum Objective Current Medications: Current Medications Sig/Anushka Start time Last Medication Dose Route Stop Time Status Admin Acetaminophen 650 MG Q6 PRN 09/06 0915 AC PO Albuterol Sulfate 3 ML BID 09/06 1000 AC 09/08 INH 2025 Ampicillin Sodium/ 3,000 MG Q6H 09/06 0400 DC 09/08 Sulbactam Sodium IV 0423 Sodium Chloride 100 ML Enoxaparin Sodium 40 MG DAILY 09/06 1000 AC 09/08 SC 1021 Guaifenesin 600 MG Q12 09/08 1002 AC 09/08 PO 2122 Ibuprofen 600 MG Q6P PRN 09/05 2300 AC PO Levothyroxine Sodium 0.125 MG DAILY AC 09/06 0700 AC 09/09 PO 0607 Prednisone 30 MG DAILY 09/08 1000 AC 09/08 PO 09/10 1001 1020 Vital Signs & I&O Last 24 Hrs of Vitals and I&O: Vital Signs Date Time Temp Pulse Resp B/P Pulse O2 O2 Flow FiO2 Ox Delivery Rate 09/09 0621 98.6 76 20 140/66 97 Room Air 09/09 0000 99 Room Air 09/08 2214 98.7 71 20 142/60 99 Room Air 09/08 2025 97 Room Air 09/08 1600 Room Air Room Air 09/08 1517 98.4 73 20 156/74 96 09/08 0949 96 Room Air Room Air Intake & Output 09/09 1600 09/09 0800 09/09 0000 Intake Total 50 480 Output Total Balance 50 480 Intake, IV 0 Intake, Oral 50 480 Number 0 Bowel Movements Room air oxygen saturation 97-99% she is afebrile exam for chest shows clear lung [place] are no wheezes or crackles cardiac exam shows regular S1 and S2 without murmurs Impression/Plan Impression/Plan Impression/Plan: 71-year-old previously healthy had emesis while undergoing colonoscopy with moderate sedation in the left lateral decubitus position. She has evidence of changes secondary to aspiration. Whether these are due to partially treated infection or inflammatory changes such as organizing pneumonia are unclear. With sedimentation rate of 15 this argues against organizing pneumonitis Recommendations: Continue steroid taper. Patient will need outpatient CAT scan to ensure resolution
--- NOTE | 2016-09-09 08:26 | PN- Housestaff ---
ALETHA PICKARD,ANTHONY 09/09/16 0822: Subjective Follow-up For: aspiration pneumonia Complaints: no complaints Subjective: Patient is sitting on the chair out of bed eating breakfast. She feels good without shortness of breath, cough/sputum. She wants to go home today. Review of Systems Constitutional: Denies: chills, fever, weakness. EENTM: Reports: no symptoms. Cardiovascular: Reports: no symptoms. Respiratory: Denies: cough, short of breath, sputum production, wheezing. Gastrointestinal: Reports: no symptoms. Genitourinary: Reports: no symptoms. Musculoskeletal: Reports: no symptoms. Skin: Reports: no symptoms. Neurological/Psychological: Reports: no symptoms. Hematologic/Endocrine: Reports: no symptoms. Immunologic/Allergic: Reports: no symptoms. Objective Last 24 Hrs of Vital Signs/I&O Vital Signs Date Time Temp Pulse Resp B/P Pulse O2 O2 Flow FiO2 Ox Delivery Rate 09/09 0621 98.6 76 20 140/66 97 Room Air 09/09 0000 99 Room Air 09/08 2214 98.7 71 20 142/60 99 Room Air 09/08 2025 97 Room Air 09/08 1600 Room Air Room Air 09/08 1517 98.4 73 20 156/74 96 09/08 0949 96 Room Air Room Air Intake & Output 09/09 1600 09/09 0800 09/09 0000 Intake Total 50 480 Output Total Balance 50 480 Intake, IV 0 Intake, Oral 50 480 Number 0 Bowel Movements Physical Exam General Appearance: Alert, Oriented X3, Cooperative, No Acute Distress Skin: No Rashes, No Breakdown, No Significant Lesion HEENT: Atraumatic, PERRLA, EOMI, Mucous Membr. moist/pink Neck: Supple, No JVD, No LAD Lymphatic: Cervical nl Cardiovascular: Regular Rate, Normal S1, Normal S2, No Murmurs Lungs: Clear to Auscultation, Normal Air Movement Abdomen: Normal Bowel Sounds, Soft, No Tenderness Neurological: Normal Speech, Strength at 5/5 X4 Ext, Normal Tone, Sensation Intact, Cranial Nerves 3-12 NL Extremities: No Edema, Normal Pulses, No Tenderness/Swelling Vascular: Normal Pulses, Pulses Symmetrical Current Medications: Current Medications Sig/Anushka Start time Last Medication Dose Route Stop Time Status Admin Acetaminophen 650 MG Q6 PRN 09/06 0915 AC PO Albuterol Sulfate 3 ML BID 09/06 1000 AC 09/08 INH 2024 Ampicillin Sodium/ 3,000 MG Q6H 09/06 0400 DC 09/08 Sulbactam Sodium IV 0423 Sodium Chloride 100 ML Enoxaparin Sodium 40 MG DAILY 09/06 1000 AC 09/08 SC 1021 Guaifenesin 600 MG Q12 09/08 1002 AC 09/08 PO 2122 Ibuprofen 600 MG Q6P PRN 09/05 2300 AC PO Levothyroxine Sodium 0.125 MG DAILY AC 09/06 0700 AC 09/09 PO 0607 Prednisone 30 MG DAILY 09/08 1000 AC 09/08 PO 09/10 1001 1020 Assessment/Plan Assessment: 71 yo female with pmh of hypothyroidism, exercise-induced asthma, recurrent episodes of diverticulitis (Jul and Jun 2016) that was treated conservatively after which she recently underwent colonoscopy by Dr. Buckner on 08/19/2016. This revealed sigmoid diverticulosis with fixed angulation likely related to recurrent diverticulitis. During the procedure, she vomited and had to be intubated. Post discharge, she experienced sore throat, fever and cough. CT chest (08/27/16) showed diffuse pneumonia, lung nodule and moderate sized hiatal hernia, so she was treated with Augmentin for aspiration pneumonia by her PCP ( Dr. Vega) for 7 days. She felt better for 3-4 days, but her symptoms returned with cough, chills and exertional dyspnea. CXR: patchy airspace opacity left lung, multifocal pneumonia. EKG: SR, nonspecific T wave changes. 1. Multifocal aspiration pneumonia w/ failed outpatient augmentin therapy: * Has received 2 days of IV Unasyn with no significant change. As remained afebrile and no evidence of leukocytosis thus far. Off antibiotics now, continue with quick taper prednisone and 3 days of azithromycin PO * Mucinex * Continue with nebulizer treatments and TRCs 2. Rt. middle low 0.6cm solid nodule: follow up Pulmonary as outpatient. * At this time no evidence of post obstructive pneumonia on that side on current chest x-ray * Outpatient follow-up CT. 3. Hypothyroidism: * c/w home 0.125 mg daily. stable to D/C today DVT ppx Lovenox. Full code. Problem List: 1. Aspiration pneumonia 2. Lung nodule Pain Ratin Pain Location: NA Pain Goal: Remain pain free Pain Plan: Tyrenol Tomorrow's Labs & Rationales: DC today DVT/Prophylaxis: pharmacological Consulting Request: Consulting Specialty: Pulmonary Disease Consulting Physician: Dr. Terry Reason for Consult: Aspiration pneumonia, lung nodule Discharge Plan Stable for Discharge? Yes JALEESA ALMARAZ MD 09/09/16 1458: Attending MD Review Statement Attending Statement Attending MD Statement: examined this patient, discuss w/resident/PA/EXPERIMENTAL BOX TESTER, agreed w/resident/PA/EXPERIMENTAL BOX TESTER, reviewed EMR data (avail), discussed with nursing, discussed with case mgmt, amended to note Attending Assessment/Plan: The patient was seen and discussed with house staff. Agree with the plan of care. OK to discharge today.
--- NOTE | 2016-09-09 08:30 | Patient Discharge Instructions ---
Discharge Instructions General Discharge Information You were seen/treated for: Aspiration pneumonia Special Instructions: Please follow up with a primary care physician in 1 week after discharge Please follow up with a assembly detailer for lung nodule / CT chest Diet Continue normal diet: Yes Recommended Diet: Regular Activity Full Activity/No Limits: Yes Activity Self Limited: No Additional ACTIVITY Info: Increase as tolerated Acute Coronary Syndrome Inclusion Criteria At DC or during hospital stay patient has or had the following: ACS DIAGNOSIS No Discharge Core Measures Meds if any: Prescribed or Continued at Discharge Meds if any: NOT Prescribed or Continued at Discharge Congestive Heart Failure Inclusion Criteria At DC or during hospital stay patient has or had the following: CHF DIAGNOSIS No Discharge Core Measures Meds if any: Prescribed or Continued at Discharge Meds if any: NOT Prescribed or Continued at Discharge Cerebrovascular accident Inclusion Criteria At DC or during hospital stay patient has or had the following: CVA/TIA Diagnosis No Discharge Core Measures Meds if any: Prescribed or Continued at Discharge Meds if any: NOT Prescribed or Continued at Discharge Venous thromboembolism Inclusion Criteria VTE Diagnosis No VTE Type NONE VTE Confirmed by (Test) NONE Discharge Core Measures - Per Current guidelines, there needs to be overlap - treatment for the first 5 days of Warfarin therapy. - If discharged on Warfarin prior to 5 days of - overlap therapy, the patient will need to be - assessed for post discharge needs including - *Post discharge parental anticoagulation - *Warfarin and/or parental anticoagulation education - *Follow up date to check INR post discharge At least 5 days overlap therapy as Inpatient No Meds if any: Prescribed or Continued at Discharge Note: Overlap Therapy is Warfarin and Anticoagulant Meds if any: NOT Prescribed or Continued at Discharge
--- NOTE | 2016-09-09 10:15 | Discharge Summary ---
Visit Information Visit Dates Admission Date: 09/05/16 Discharge Date: 09/09/16 Hospital Course Course Attending Physician: JALEESA ALMARAZ MD Primary Care Physician: OPAL VEGA DO Consulting Request: Consulting Specialty: Pulmonary Disease Consulting Physician: Dr. Terry Reason for Consult: Aspiration pneumonia, lung nodule Hospital Course: 71 year-old lady with pmh of hypothyroidism, exercise-induced asthma, recurrent episodes of diverticulitis (Jul & Jun 2016) that was treated conservatively after which she recently underwent colonoscopy by Dr. Buckner on 08/19/2016 came to [place] [facility] with a chief complaint of dyspnea. Most recent colonoscopy (08/19/16 ) revealed sigmoid diverticulosis with fixed angulation likely related to recurrent diverticulitis. During the procedure, she vomited and had to be intubated. Post discharge, she experienced sore throat, fever and cough. CT chest (08/27/16) showed diffuse pneumonia, lung nodule and moderate sized hiatal hernia, so she was treated with Augmentin for aspiration pneumonia by her PCP ( Dr. Vega) for 7 days. She felt better for 3-4 days, but her symptoms returned with cough, chills and exertional dyspnea.. Initial vitals: 98.3F AR 81 RR 20 BP 134/84 sPO2 98% on RA. On exam, General Appearance Alert, Oriented X3, Cooperative, No Acute Distress Skin No Rashes, No Breakdown, HEENT Atraumatic, PERRLA, EOMI Cardiovascular Regular Rate, Normal S1, Normal S2, 1/6 Systolic murmurs, Lungs NORMAL AIR ENTRY BILATERALLY, RHONCHII AND WHEEZING OVER MID AND LOWER LUNGS B/L Abdomen Normal Bowel Sounds, Soft, No Tenderness, Neurological Normal Speech, Strength at 5/5 X4 Ext, Normal Tone, Sensation Intact, Cranial Nerves 3-12 NL Labs: unremarkable. CXR: patchy airspace opacity left lung, multifocal pneumonia. EKG: Rate 78, AR 158, QRS 104, QTc 388, Sinus rhythm, LVH Patient was admitted to general medicine floor for following problem lists; 1. Multifocal aspiration pneumonia/pneumonitis as a complication from recent anesthesia: She had emesis while undergoing colonoscopy with moderate sedation in the left lateral decubitus position. She has evidence of changes from CT secondary to aspiration given the patient's hiatal hernia. Whether these are due to partially treated infection or inflammatory changes such as organizing pneumonia are unclear. It also precipitated her asthma exacerbation. Pulmonary consult was obtained. She continued on TRC nebs and aspiration precautions. She was unable to collect sputum for culture. Blood cultures remained negative. She was given IV Unasyn for 4 days and monitored off antibiotics as she remained afebrile without leukocytosis. IV solumedrol was tapered to po prednisone 30mg daily, and she'll be discharged with po prednisone course. She needs to follow up a crossing gateman to repeat CT chest. 2. Rt. middle lobe 0.6cm solid nodule: CT chest on 08/27/16 showed 0.6 cm nonspecific solid noncalcified nodule in the right middle lobe. Patient needs to follow up pulmonary as outpt. 3. Hypothyroidism: We continued home 0.125 mg daily. DVT ppx Lovenox. Full code. Allergies: Coded Allergies: codeine (Intermediate, NAUSEA 07/13/16) meperidine (From DEMEROL) (Intermediate, NAUSEA 07/13/16) Disposition Summary Disposition Principal Diagnosis: Multifocal aspiration pneumonia/pneumonitis as a complication from recent anesthesia Acute asthma exacerbation Rt. middle lobe 0.6cm solid nodule Additional Diagnosis: Hypothyroidism Hx of diverticulitis Discharge Disposition: home or self care Discharge Instructions General Discharge Information Code Status: Full Code Patient's Diet: Regular diet Patient's Activity: Increase as tolerated Follow-Up Instructions/Appts: Please follow up with a primary care physician in 1 week after discharge Please follow up with a crossing gateman for repeating CT chest after aspiration / Rt. lung nodule. Medications at Discharge Discharge Medications: Continue taking these medications: Levothyroxine Sodium (Synthroid) 125 MCG TABLET 1 Tablet ORAL DAILY Comments: Last Taken: 09/09/16 Time: 6 AM Start taking the following new medications: Guaifenesin (Guaifenesin ER) 600 MG TAB.ER.12H 600 Milligram ORAL EVERY 12 HOURS Qty = 14 No Refills Comments: Last Taken: 09/09/16 Time: 10AM Prednisone (Prednisone) 10 MG TABLET 20 Milligram ORAL DAILY Qty = 6 No Refills Instructions: 20mg x 2 days (09/10-09/11) 10mg x 2 days (09/12-09/13) Comments: Last Taken: 09/09/16 Time: 10AM Copies To: FROYLAN PICKARD,MISTY Pollock; JALEESA ALMARAZ MD; OPAL VEGA DO Attending MD Review Statement Documenting Attending: JALEESA ALMARAZ MD Other Findings: The patient was seen and agree with the plan of care upon discharge.
[2016-09-09] MEDS ORDERED: PREDNISONE10 M2 PO (11:47)
[2016-09-09] MEDS ORDERED: GUAIFENESIN ER600 MG PO (11:47)
== END 2016-09-09 12:14 | DRG 205 ==
LOC: ENRESERVDT → ENRESERVTM → ERH 17:51 → ERHI 21:07 → 2NA 21:07 → ENPENDDIS 21:07 → 2NA 09-06 00:02
PROVIDERS: Emergency Medicine; Internal Medicine; ADMIT Student in an Organized Health Care Education/Training Program
DX: J95.89 Other postprocedural complications and disorders of respiratory system, not elsewhere classified (principal); J69.0 Pneumonitis due to inhalation of food and vomit; J45.901 Unspecified asthma with (acute) exacerbation; E03.9 Hypothyroidism, unspecified; Y84.9 Medical procedure, unspecified as the cause of abnormal reaction of the patient, or of later complication, without mention of misadventure at the time of the procedure; R91.1 Solitary pulmonary nodule
CPT/HCPCS: 2NASP; ERO; 81001; 87040; 87070; 93005; 93010; J1650; J2920; J2930; J7512